=== PATIENT | male | born 1955 | race Caucasian/White ===

== ENCOUNTER 2016-09-12 12:09 | Emergency (ER) | payer MEDICAID, OTHER ==
[2016-09-12] MEDS ORDERED: Lidocaine 1% 20 ML MDV ONE (13:19)
[2016-09-12 13:38] VITALS: BP 119/77
[2016-09-12] MEDS ORDERED: Lidocaine 1% 20 ML MDV INJECT ONE (13:42)
[2016-09-12] MEDS ORDERED: Bacitracin Oint 1 GM U/D Packet ONE (13:42)
[2016-09-12] MEDS ORDERED: Bacitracin Oint 1 GM U/D Packet TOP ONE (13:43)
--- NOTE | 2016-09-12 13:47 | EDM.PDOC ---
ED HPI Skin/Rash - General Chief Complaint: Laceration Stated Complaint: RIGHT FIRST FINGER LACERATION Time Seen by Provider: 09/12/16 13:42 Source: Reports: Patient History Limitations: Reports: No limitations - History of Present Illness INITIAL COMMENTS - FREE TEXT/NARRATIVE: This gentleman went to the child and was throwing out a broken toilet. He cut his right index finger against a sharp gauge of the broken toilet. This happened just prior to arrival. Patient said it bled a lot but he takes aspirin daily. - Related Data Allergies Allergy/AdvReac Type Severity Reaction Status Date / Time No Known Allergies Allergy Verified 03/30/16 10:14 Home Meds: Ambulatory Orders Medication Instructions Recorded Confirmed Aspirin 81 mg PO DAILY 11/14/13 03/30/16 Carvedilol 6.25 mg PO BID 11/14/13 03/30/16 Hydrocodone 5 - 325 tab PO Q4H PRN 11/14/13 03/30/16 Lisinopril 5 mg PO DAILY 11/14/13 03/30/16 Nitro 11/14/13 11/14/13 Ropinirole 1 tab PO BEDTIME 11/14/13 03/30/16 rOPINIRole [Requip] 1 mg PO DAILY PRN 03/30/16 03/30/16 Past Medical History HEENT History: Reports: Impaired vision Cardiovascular History: Reports: Aneurysm, CAD, High cholesterol, Hypertension, [place] Musculoskeletal History: Reports: Fracture Psychiatric History: Reports: Depression - Infectious Disease History Infectious Disease History: Reports: Chicken pox, Measles, Mumps, Shingles - Past Surgical History HEENT Surgical History: Reports: Tonsillectomy Cardiovascular Surgical History: Reports: AAA repair, Carotid stents, Coronary artery bypass GI Surgical History: Reports: Colonoscopy Musculoskeletal Surgical History: Reports: Knee replacement Other Musculoskeletal Surgeries/Procedures:: R thumb fx Social & Family History - Family History Family Medical History: Noncontributory - Tobacco Use Smoking Status *Q: Never Smoker Second Hand Smoke Exposure: No - Caffeine Use Caffeine Use: Reports: Coffee Other Caffeine Use: 1-2 cups a day - Recreational Drug Use Recreational Drug Use: No ED ROS GENERAL - Review of Systems Review Of Systems: ROS reveals no pertinent complaints other than HPI. ED EXAM, SKIN/RASH Exam: See Below Extremities: other (3-1/2 cm linear laceration to the pad of the right index finger. proximal part crosses over the DIP joint. There is no tendon involvement. Edges well approximated. It's a clean wound. Neurovascular normal) Course - Vital Signs Last Recorded V/S: Last Vital Signs Temp 37.0 C 09/12/16 13:28 Pulse 71 09/12/16 13:28 Resp 12 09/12/16 13:28 BP 119/77 09/12/16 13:28 Pulse Ox 98 09/12/16 13:28 - Orders/Labs/Meds Orders: Active Orders 24 hr Category Date Time Status Bacitracin [Bacitracin Oint 1 GM] Med 09/12/16 13:43 Once 1 dose TOP ONETIME ONE Lidocaine 1% [Xylocaine 1%] Med 09/12/16 13:42 Once 20 ml INJECT ONETIME ONE Meds: Medications Discontinued Medications Generic Name Dose Route Start Last Admin Trade Name Anthony PRN Reason Stop Dose Admin Lidocaine HCl Confirm 09/12/16 13:19 Xylocaine 1% Administered 09/12/16 13:20 Dose 20 ml .ROUTE .STK-MED ONE - Re-Assessments/Exams Free Text/Narrative Re-Assessment/Exam: 09/12/16 13:45 Procedure laceration repair The wound was injected with approximately 3 mL of 1% plain lidocaine. The wound was scrubbed with Shur-Clens and then it turning to the applied at the base of the finger. The wound was then copiously irrigated with saline and explored. There was no foreign body. Edges were reapproximated with running 4- 0 nylon. The tourniquet was removed there was some moderate oozing from the suture luis. A bacitracin dressing will be applied after holding pressure on this wound for an appropriate period wound care instructions were given Departure - Departure Time of Disposition: 13:46 Disposition: Home, Self-Care 01 Condition: fair Clinical Impression: Finger laceration Forms: ED Department Discharge Additional Instructions: Wash the area with soap and water daily and apply antibiotic ointment followed by some kind of a dressing. Keep the dressing clean and dry. Watch for any signs of infection. See your doctor in 10 days for suture removal - My Orders Last 24 Hours: My Active Orders 09/12/16 13:42 Lidocaine 1% [Xylocaine 1%] 20 ml INJECT ONETIME ONE 09/12/16 13:43 Bacitracin [Bacitracin Oint 1 GM] 1 dose TOP ONETIME ONE - Assessment/Plan Last 24 Hours: My Active Orders 09/12/16 13:42 Lidocaine 1% [Xylocaine 1%] 20 ml INJECT ONETIME ONE 09/12/16 13:43 Bacitracin [Bacitracin Oint 1 GM] 1 dose TOP ONETIME ONE
== END 2016-09-12 13:58 | disposition home or self-care (01) ==
LOC: JP.ED 12:09
DX: S61.210A Laceration without foreign body of right index finger without damage to nail, initial encounter (principal); I25.10 Atherosclerotic heart disease of native coronary artery without angina pectoris; I10 Essential (primary) hypertension; I25.2 Old myocardial infarction; E78.00 Pure hypercholesterolemia, unspecified; F32.9 Major depressive disorder, single episode, unspecified; Z95.1 Presence of aortocoronary bypass graft; Z96.659 Presence of unspecified artificial knee joint; Z98.890 Other specified postprocedural states; Z79.82 Long term (current) use of aspirin; Z79.899 Other long term (current) drug therapy; W45.8XXA Other foreign body or object entering through skin, initial encounter
CPT/HCPCS: 12002; 99283-25